=== PATIENT | male | born 1985 ===

== ENCOUNTER 2021-01-07 09:57 | Day surgery (SDC) | payer OTHER ==
[~2021-01-07 09:57] MED LIST: ZESTORETIC 10-1 EACH PO
== END 2021-01-07 22:25 | disposition home or self-care (01) ==
LOC: CIR.AMB 09:57
PROVIDERS: ATTEND Orthopaedic Surgery
DX: S76.122A Laceration of left quadriceps muscle, fascia and tendon, initial encounter (principal)